=== PATIENT | female | born 1985 | race Caucasian/White ===

== ENCOUNTER 2019-05-11 18:06 | Emergency (ER) | payer BC, OTHER ==
--- NOTE | 2019-05-11 18:23 | PDOC ---
History of Present Illness - General Chief Complaint: Chest Pain Stated Complaint: chest pain,dizziness, Time Seen by Provider: 05/11/19 18:22 - History of Present Illness Initial Comments: 05/11/19 19:10 Sweta Garcia is a 33yF with PMHx endometriosis presenting w chest pain and SOB. Started last night while watching TV, chest pain midsternal, comes and goes, worse w exertion. Recently resolved migraines for past 4 days. Denies fever, n/v, urinary/bowel changes. Past History - Past Medical History Allergies/Adverse Reactions: Allergies Allergy/AdvReac Type Severity Reaction Status Date / Time No Known Allergies Allergy Verified 05/11/19 18:19 Home Medications: Ambulatory Orders NK [No Known Home Medication] 05/11/19 COPD: No Other medical history: pt denies Review of Systems - Review of Systems Constitutional: No: Chills, Fever, Malaise HEENTM: No: Eye Pain, Nose Pain, Throat Pain, Mouth Pain Respiratory: Yes: Shortness of Breath. No: Cough Cardiac (ROS): Yes: Chest Pain. No: Edema, Lightheadedness, Palpitations ABD/GI: No: Abdominal Distended, Constipated, Diarrhea, Nausea, Vomiting : No: Burning, Dysuria, Discharge, Frequency, Hematuria Musculoskeletal: No: Back Pain, Joint Pain, Joint Swelling, Muscle Pain Integumentary: No: Bruising, Dryness, Erythema, Flushing Neurological: No: Headache, Paresthesia, Seizure, Tingling, Tremors Psychiatric: No: Anxiety, Depression Endocrine: No: Excessive Sweating, Flushing, Intolerance to Cold, Intolerance to Heat Hematologic/Lymphatic: No: Anemia, Blood Clots, Easy Bleeding *Physical Exam - Physical Exam General Appearance: Yes: Nourished, Appropriately Dressed. No: Apparent Distress HEENT: positive: EOMI, ELSIE, Normal Voice, Hearing Grossly Normal. negative: Scleral Icterus (R), Scleral Icterus (L), Lesions, [place] Respiratory/Chest: positive: Lungs Clear, Normal Breath Sounds. negative: Chest Tender, Respiratory Distress, Crackles, Rales, Rhonchi, Stridor, Wheezing Cardiovascular: positive: Regular Rhythm, Regular Rate, S1, S2. negative: Edema , Murmur Gastrointestinal/Abdominal: positive: Normal Bowel Sounds, Tender (L flank, suprapubic region), Flat, Soft, Guarding (L flank). negative: Organomegaly, Distended, Hernia, Mass Integumentary: positive: Normal Color Neurologic: positive: Fully Oriented, Alert, Normal Response, Motor Strength 5/5 , Responsive. negative: Numbness, Confused, Disoriented ED Treatment Course - LABORATORY CBC & Chemistry Diagram: 05/11/19 18:50 05/11/19 18:50 Medical Decision Making - Medical Decision Making 05/11/19 18:48 POC preg negative CBC CMP cardiac profile EKG CXR tylenol for pain Sweta Garcia is a 33yF w PMHx endometriosis presenting with chest pain and SOB. Consider MSK or anxiety. Unlikely ACS bc lack of cardiac risk factors. Consider MSK, UTI for abdominal tenderness. Not , PERC rules out PE. Given tylenol for pain. Signed out to Dr Morgan. Anticipate d/c home pending lab results *DC/Admit/Observation/Transfer Diagnosis at time of Disposition: Chest pain Qualifiers: Chest pain type: unspecified Qualified Code(s): R07.9 - Chest pain, unspecified - Discharge Dispostion Condition at time of disposition: Good - Referrals - Patient Instructions - Post Discharge Activity
[2019-05-11 18:30] VITALS: BP 114/73; PULSE 72; TEMP 98.1
[2019-05-11] MEDS ORDERED: ACETAMINOPHEN 500 MG TABLET (FP) PO ONE (18:49)
[2019-05-11] MEDS ORDERED: ACETAMINOPHEN 325 MG TABLET (FP) ONE (18:58)
[2019-05-11 19:15] LABS: BASO % 0.5 % (0-2.0); EOS % 4.9 % (0-4.5); HEMOGLOBIN 15.4 GM/dl (10.7-15.3); MCH 31.6 pg (25.7-33.7); MCHC 33.4 g/dl (32.0-36.0); MEAN CELL VOLUME 94.7 fl (80-96); MONO % 9.2 % (3.8-10.2); NEUT % 54.4 % (42.8-82.8); PLATELET COUNT 241 K/MM3 (134-434); RBC 4.86 M/mm3 (3.60-5.2); RDW 12.7 % (11.6-15.6); WHITE BLOOD COUNT 5.9 K/mm3 (4.0-10.8)
[2019-05-11 19:31] LABS: ALBUMIN 4.2 g/dl (3.4-5.0); BILIRUBIN,TOTAL 0.4 mg/dl (0.2-1); CALCIUM 9.3 mg/dl (8.5-10); CREATININE 0.7 mg/dl (0.55-1.3); POTASSIUM 4.7 mmol/L (3.5-5.1); TOT PROT 7.4 g/dl (6.4-8.2)
--- NOTE | 2019-05-11 20:41 | PDOC ---
History of Present Illness - General Chief Complaint: Chest Pain Stated Complaint: chest pain,dizziness, Time Seen by Provider: 05/11/19 18:22 Past History - Past Medical History Allergies/Adverse Reactions: Allergies Allergy/AdvReac Type Severity Reaction Status Date / Time No Known Allergies Allergy Verified 05/11/19 18:19 Home Medications: Ambulatory Orders Sumatriptan Succinate 100 mg PO DAILY #3 tablet 05/11/19 COPD: No Other medical history: pt denies - Suicide/Smoking/Psychosocial Hx Smoking History: Current every day smoker Number of Cigarettes Smoked Daily: 6 Information on smoking cessation initiated: Yes Hx Alcohol Use: Yes (once every 2 weeks) Drug/Substance Use Hx: No *Physical Exam - Vital Signs Last Vital Signs Temp Pulse Resp BP Pulse Ox 98.1 F 72 18 114/73 100 05/11/19 18:07 05/11/19 18:07 05/11/19 18:07 05/11/19 18:07 05/11/19 18:07 ED Treatment Course - LABORATORY CBC & Chemistry Diagram: 05/11/19 18:50 05/11/19 18:50 - ADDITIONAL ORDERS Additional order review: Laboratory Results 05/11/19 05/11/19 05/11/19 19:00 18:50 18:50 Sodium Potassium Chloride Carbon Dioxide Anion Gap BUN Creatinine Est GFR (CKD-EPI)AfAm Est GFR (CKD-EPI)NonAf Random Glucose Calcium Total Bilirubin AST ALT Alkaline Phosphatase Creatine Kinase Cancelled 74 Troponin I Cancelled < 0.03 Total Protein Albumin Urine Color Urine Appearance Urine pH Urine Protein Urine Glucose (UA) Urine Ketones Urine Blood Urine Nitrite Urine Bilirubin Urine Urobilinogen Ur Leukocyte Esterase 05/11/19 05/11/19 18:50 18:50 Sodium 138 Potassium 4.7 Chloride 102 Carbon Dioxide 30 Anion Gap 6 L BUN 14.0 Creatinine 0.7 Est GFR (CKD-EPI)AfAm 133.81 Est GFR (CKD-EPI)NonAf 115.45 Random Glucose 99 Calcium 9.3 Total Bilirubin 0.4 AST 16 ALT 18 Alkaline Phosphatase 67 Creatine Kinase Troponin I Total Protein 7.4 Albumin 4.2 Urine Color Yellow Urine Appearance Clear Urine pH 5.5 Urine Protein Negative Urine Glucose (UA) Negative Urine Ketones Negative Urine Blood Trace-intact Urine Nitrite Negative Urine Bilirubin Negative Urine Urobilinogen 0.2 Ur Leukocyte Esterase Negative 08/12/19 18:50 RBC 4.86 MCV 94.7 MCHC 33.4 RDW 12.7 MPV 9.0 Neutrophils % 54.4 Lymphocytes % 31.0 Monocytes % 9.2 Eosinophils % 4.9 H Basophils % 0.5 - Medications Given in the ED: ED Medications Discontinued Medications Generic Name Dose Route Start Last Admin Trade Name Lupe PRN Reason Stop Dose Admin Acetaminophen 975 mg 05/11/19 18:49 05/11/19 19:08 Tylenol - PO 05/11/19 18:50 975 mg ONCE ONE Administration Medical Decision Making - Medical Decision Making 05/12/19 01:35 observed in ED. no events on monitor. ambulatory in ED without dyspnea, desaturation or tachycardia *DC/Admit/Observation/Transfer Diagnosis at time of Disposition: Palpitations - Discharge Dispostion Disposition: HOME Condition at time of disposition: Good - Prescriptions Prescriptions: Sumatriptan Succinate 100 mg PO DAILY #3 tablet - Referrals Referrals: Hunter Richardson MD [Staff Physician] - 2 Days Kunal Evans MD [Staff Physician] - 2 Days - Patient Instructions Printed Discharge Instructions: DI for Migraine, DI for Palpitations - Post Discharge Activity
[2019-05-11 22:25] LABS: CALCIUM OXALATE CRYSTALS FEW /hpf (NONE SEEN); EPITHELIAL CELLS FEW /hpf
--- NOTE | 2019-05-12 11:26 | EKG ---
Test Reason : Blood Pressure : / mmHG Vent. Rate : 068 BPM Atrial Rate : 068 BPM P-R Int : 130 ms QRS Dur : 084 ms QT Int : 392 ms P-R-T Axes : 053 078 055 degrees QTc Int : 416 ms NORMAL SINUS RHYTHM WITH SINUS ARRHYTHMIA NORMAL ECG NO PREVIOUS ECGS AVAILABLE Confirmed by Salvador Perdomo MD ([id number]) on 05/12/2019 11:25:42 AM Referred By: Confirmed By:Salvador Perdomo MD
== END 2019-05-11 20:46 | disposition home or self-care (01) ==
LOC: FER 18:06
DX: R07.9 Chest pain, unspecified (principal)
CPT/HCPCS: 36415; 71046-TC-FY; 80053; 81003; 81015; 81025; 82550; 83690; 84484; 85025; 87086; 93005; 99283-25